=== PATIENT | male | born 1995 | race Caucasian/White ===

== ENCOUNTER 2020-09-29 09:28 | Emergency (ER) | payer OTHER ==
[~2020-09-29] VITALS: Ht 182.9 cm; Wt 104.5 kg
[2020-09-29 09:55] VITALS: BP 144/91
[2020-09-29] MEDS ORDERED: CYCL-1 PO (13:17)
== END 2020-09-29 13:33 | disposition home or self-care (01) ==
LOC: ER 09:28
DX: M54.41 Lumbago with sciatica, right side (principal); Z72.89 Other problems related to lifestyle; Z79.899 Other long term (current) drug therapy
CPT/HCPCS: 99283